=== PATIENT | female | born 2000 | race Two or more races ===

== ENCOUNTER 2023-01-17 21:28 | Emergency (ER) | payer OTHER ==
[~2023-01-17] VITALS: Ht 154.9 cm; Wt 59.9 kg
[2023-01-18] MEDS ORDERED: ONDANSETRON ODT4 MG PO (03:22)
[2023-01-18] MEDS ORDERED: CEPHALEXIN250 MG/5 M PO (03:25)
== END 2023-01-18 03:34 ==
LOC: ER 21:28
DX: A08.39 Other viral enteritis (principal); Z20.822 Contact with and (suspected) exposure to COVID-19

== ENCOUNTER 2023-11-24 16:11 | Emergency (ER) | payer OTHER ==
[~2023-11-24] VITALS: Ht 154.9 cm; Wt 60.8 kg
[~2023-11-24 16:11] MED LIST: CEPHALEXIN250 MG/5 M PO; ONDANSETRON ODT4 MG PO
[2023-11-24] MEDS ORDERED: PRENA1 CHEW TA1.4 MG PO (16:16)
[2023-11-24 18:23] LABS: URINE APPEARANCE Clear; URINE BILIRRUBIN Negative (NEGATIVE); URINE BLOOD Negative; URINE COLOR Yellow; URINE GLUCOSE Negative (NEGATIVE); URINE LEUKOCYTE Moderate; URINE NITRATE Negative; URINE PROTEIN Negative (NEGATIVE); URINE UROBILINOGEN 0.2 E.U./dl
[2023-11-24 18:27] LABS: URINE EPITHELIAL CELLS 27.9 uL (0.0-38.8); URINE RBC 7.4 uL (0.0-20.8); URINE WBC 88.7 uL (0.0-23.2)
[2023-11-24 18:37] LABS: HEMATOCRIT 37.7 % (36.0-45.00); HEMOGLOBIN 12.7 g/dL (12.0-15.00); MEAN CELL VOLUME 83.8 fL (80.00-100.00); MEAN CORPUSCULAR HEMOGLOBIN 28.2 pg (27.00-32.0); MEAN CORPUSCULAR HGB CONC 33.6 g/dl (32.0-36.0); PLATELET COUNT 324 K/uL (150-450); RED CELL DISTRIBUTION WIDTH 15.9 % (11.5-14.5)
[2023-11-24 19:05] LABS: ALBUMIN 3.8 gm/dL (3.4-5.0); BILIRUBIN TOTAL 0.32 mg/dL (0.3-1.2); CALCIUM 9.5 mg/dL (8.5-10.1); CREATININE SERUM 0.67 mg/dL (0.55-1.02); GFR 110.06; GLOBULINA 3.5 G/DL (2.4-3.5); POTASSIUM 4.42 mEq/L (3.5-5.1); TOTAL PROTEIN 7.3 gm/dL (6.4-8.2)
== END 2023-11-24 19:58 | disposition home or self-care (01) ==
LOC: ER 16:11
PROVIDERS: General Practice
DX: O23.41 Unspecified infection of urinary tract in pregnancy, first trimester (principal); N39.0 Urinary tract infection, site not specified; Z3A.11 11 weeks gestation of pregnancy; E16.1 Other hypoglycemia

== ENCOUNTER 2023-12-05 09:48 | Outpatient (CLI) | payer OTHER ==
[~2023-12-05 09:48] MED LIST changes: +PRENA1 CHEW TA1.4 MG PO
== END 2023-12-05 09:50 | disposition home or self-care (01) ==
LOC: PRENATAL 09:48
PROVIDERS: ATTEND Obstetrics & Gynecology Maternal & Fetal Medicine
DX: O36.80X0 Pregnancy with inconclusive fetal viability, not applicable or unspecified (principal); Z36.82 Encounter for antenatal screening for nuchal translucency; Z36.9 Encounter for antenatal screening, unspecified; O98.919 Unspecified maternal infectious and parasitic disease complicating pregnancy, unspecified trimester; Z3A.13 13 weeks gestation of pregnancy

== ENCOUNTER 2023-12-25 16:05 | Emergency (ER) | payer OTHER ==
[~2023-12-25] VITALS: Ht 154.9 cm; Wt 59.0 kg
[2023-12-25] MEDS ORDERED: RINGERS SOLUTION,LACTATED 1,000 ML IV ONE (17:45)
[2023-12-25] MEDS ORDERED: FAMOTIDINE/PF 20 MG/2 ML VIAL IV ONE (17:45)
[2023-12-25] MEDS ORDERED: KETOROLAC TROMETHAMINE 30 MG VIAL IV ONE (17:45)
[2023-12-25] MEDS ORDERED: ONDANSETRON HCL 2 MG/ML VIAL IV ONE (17:45)
[2023-12-25 18:39] LABS: HEMATOCRIT 36.7 % (36.0-45.00); HEMOGLOBIN 12.8 g/dL (12.0-15.00); MEAN CORPUSCULAR HGB CONC 34.9 g/dl (32.0-36.0); PLATELET COUNT 261 K/uL (150-450); RED BLOOD COUNT 4.26 M/uL (4.00-6.00); RED CELL DISTRIBUTION WIDTH 14.9 % (11.5-14.5)
[2023-12-25 19:18] LABS: URINE APPEARANCE Clear; URINE BACTERIA 94.4 uL (0.0-1933); URINE BILIRRUBIN Negative (NEGATIVE); URINE BLOOD Negative; URINE COLOR Dark Yellow; URINE EPITHELIAL CELLS 16.5 uL (0.0-38.8); URINE GLUCOSE Negative (NEGATIVE); URINE LEUKOCYTE Negative; URINE NITRATE Negative; URINE PROTEIN Trace (NEGATIVE); URINE RBC 2.7 uL (0.0-20.8); URINE WBC 8.9 uL (0.0-23.2)
[2023-12-25 19:20] LABS: CALCIUM 9.3 mg/dL (8.5-10.1); CREATININE SERUM 0.42 mg/dL (0.55-1.02); GFR 186.97; POTASSIUM 4.41 mEq/L (3.5-5.1)
[2023-12-25] MEDS ORDERED: ONDANSETRON ODT4 MG SL (20:56)
[2023-12-25] MEDS ORDERED: PEPCID AC20 MG PO (20:56)
== END 2023-12-25 21:44 | disposition home or self-care (01) ==
LOC: ER 16:06
PROVIDERS: Nurse Practitioner Family
DX: O26.892 Other specified pregnancy related conditions, second trimester (principal); Z3A.16 16 weeks gestation of pregnancy; Z20.822 Contact with and (suspected) exposure to COVID-19; R10.2 Pelvic and perineal pain

== ENCOUNTER 2024-04-22 04:19 | Outpatient (CLI) | payer OTHER ==
[~2024-04-22 04:19] MED LIST changes: +ONDANSETRON ODT4 MG SL; +PEPCID AC20 MG PO
[2024-04-22] MEDS ORDERED: RINGERS SOLUTION,LACTATED 1,000 ML IV SCH (04:30)
[2024-04-22 05:31] LABS: PH,URINE 6.5 (5.0-8.0); URINE APPEARANCE Cloudy; URINE BILIRRUBIN Negative (NEGATIVE); URINE BLOOD Small; URINE COLOR Yellow; URINE GLUCOSE Negative (NEGATIVE); URINE LEUKOCYTE Moderate; URINE NITRATE Negative; URINE PROTEIN Trace (NEGATIVE)
[2024-04-22 05:34] LABS: URINE BACTERIA 7007.7 uL (0.0-1933); URINE EPITHELIAL CELLS 51.6 uL (0.0-38.8); URINE RBC 82.6 uL (0.0-20.8); URINE WBC 120.9 uL (0.0-23.2)
[2024-04-22 06:13] LABS: URINE CRYSTALS FEW /HPF
== END 2024-04-22 11:01 | disposition home or self-care (01) ==
LOC: OBS/DEL 04:19
PROVIDERS: ATTEND General Practice
DX: O26.893 Other specified pregnancy related conditions, third trimester (principal); N20.0 Calculus of kidney; Z3A.33 33 weeks gestation of pregnancy; O26.849 Uterine size-date discrepancy, unspecified trimester; O36.8199 Decreased fetal movements, unspecified trimester, other fetus; O60.00 Preterm labor without delivery, unspecified trimester; M54.50 Low back pain, unspecified; R10.2 Pelvic and perineal pain

== ENCOUNTER 2024-05-12 21:19 | Outpatient (CLI) | payer OTHER ==
[~2024-05-12] VITALS: Ht 154.9 cm; Wt 62.6 kg
[2024-05-12] MEDS ORDERED: AMPICILLIN SODIUM 2,000 MG VIAL IV ONE (21:30)
[2024-05-12] MEDS ORDERED: RINGERS SOLUTION,LACTATED 1,000 ML IV SCH (21:30)
[2024-05-12] MEDS ORDERED: BETAMETHASONE ACETATE,SOD PHOS 30 MG/5 ML ML IM ONE (21:40)
[2024-05-12 22:02] LABS: PH,URINE 5.5 (5.0-8.0); URINE APPEARANCE Cloudy; URINE BILIRRUBIN Small (NEGATIVE); URINE BLOOD Negative; URINE COLOR Dark Yellow; URINE GLUCOSE Negative (NEGATIVE); URINE KETONE 15 (NEGATIVE); URINE LEUKOCYTE Small; URINE NITRATE Negative; URINE PROTEIN 30 (NEGATIVE)
[2024-05-12 22:03] LABS: URINE BACTERIA 8396.2 uL (0.0-1933); URINE EPITHELIAL CELLS 48.5 uL (0.0-38.8); URINE RBC 11.6 uL (0.0-20.8); URINE WBC 135.8 uL (0.0-23.2)
[2024-05-12 22:19] LABS: INR 0.96; PARTIAL THROMBOPLASTIN TIME 24.4 SECONDS (22.0-34.0); PROTHROMBIN TIME 10.1 SECONDS (9.0-11.5)
[2024-05-12 22:23] LABS: ALBUMIN 2.7 gm/dL (3.4-5.0); BILIRUBIN TOTAL 0.42 mg/dL (0.3-1.2); CALCIUM 8.8 mg/dL (8.5-10.1); CREATININE SERUM 0.45 mg/dL (0.55-1.02); GFR 172.66; GLOBULINA 3.2 G/DL (2.4-3.5); POTASSIUM 3.84 mEq/L (3.5-5.1); TOTAL PROTEIN 5.9 gm/dL (6.4-8.2)
[2024-05-12 22:25] LABS: HEMATOCRIT 27.7 % (36.0-45.00); MEAN CELL VOLUME 77.9 fL (80.00-100.00); MEAN CORPUSCULAR HEMOGLOBIN 26.4 pg (27.00-32.0); MEAN CORPUSCULAR HGB CONC 33.8 g/dl (32.0-36.0); PLATELET COUNT 257 K/uL (150-450); RED BLOOD COUNT 3.55 M/uL (4.00-6.00); RED CELL DISTRIBUTION WIDTH 15.4 % (11.5-14.5); URINE CAST 1.22 uL (0.0-1.40)
[2024-05-12 22:26] LABS: HEMOGLOBIN 9.4 g/dL (12.0-15.00)
[2024-05-13] MEDS ORDERED: AMPICILLIN SODIUM 1,000 MG VIAL IV SCH (01:00)
[2024-05-13] MEDS ORDERED: BETAMETHASONE ACETATE,SOD PHOS 30 MG/5 ML ML IM NR (07:00)
[2024-05-13] MEDS ORDERED: SOD FERRIC GLUC COMPLX/SUCROSE 62.5 MG/5 ML AMPUL IV SCH (09:30)
== END 2024-05-13 14:11 | disposition home or self-care (01) ==
LOC: OBS/DEL 21:19
PROVIDERS: ATTEND General Practice
DX: O26.893 Other specified pregnancy related conditions, third trimester (principal); O99.013 Anemia complicating pregnancy, third trimester; Z3A.35 35 weeks gestation of pregnancy; O26.849 Uterine size-date discrepancy, unspecified trimester; O36.8199 Decreased fetal movements, unspecified trimester, other fetus

== ENCOUNTER 2024-05-28 14:30 | Inpatient (IN) | payer OTHER ==
[~2024-05-28] VITALS: Ht 152.4 cm; Wt 66.2 kg
[2024-05-28 15:56] LABS: HEMATOCRIT 35.7 % (36.0-45.00); HEMOGLOBIN 11.6 g/dL (12.0-15.00); MEAN CELL VOLUME 80.4 fL (80.00-100.00); MEAN CORPUSCULAR HEMOGLOBIN 26.3 pg (27.00-32.0); MEAN CORPUSCULAR HGB CONC 32.6 g/dl (32.0-36.0); PLATELET COUNT 239 K/uL (150-450); RED BLOOD COUNT 4.44 M/uL (4.00-6.00); URINE APPEARANCE Clear; URINE BILIRRUBIN Negative (NEGATIVE); URINE BLOOD Negative; URINE COLOR Dark Yellow; URINE GLUCOSE Negative (NEGATIVE); URINE KETONE Trace (NEGATIVE); URINE LEUKOCYTE Trace; URINE NITRATE Negative; URINE PROTEIN Trace (NEGATIVE)
[2024-05-28 15:59] LABS: URINE BACTERIA 1117.5 uL (0.0-1933); URINE EPITHELIAL CELLS 25.5 uL (0.0-38.8); URINE RBC 3.6 uL (0.0-20.8)
[2024-05-28 16:15] LABS: INR 0.97; PARTIAL THROMBOPLASTIN TIME 27.6 SECONDS (22.0-34.0); PROTHROMBIN TIME 10.6 SECONDS (9.0-11.5); URINE CAST 0.45 uL (0.0-1.40); URINE CRYSTALS FEW /HPF; URINE MUCUS MODERATE
[2024-05-28 16:21] LABS: BILIRUBIN TOTAL 0.49 mg/dL (0.3-1.2); CALCIUM 9.4 mg/dL (8.5-10.1); CREATININE SERUM 0.43 mg/dL (0.55-1.02); GFR 181.96; GLOBULINA 3.7 G/DL (2.4-3.5); POTASSIUM 4.45 mEq/L (3.5-5.1); TOTAL PROTEIN 6.7 gm/dL (6.4-8.2)
[2024-06-09] VITALS (8 sets, daily range): BP systolic 100–123; BP diastolic 65–76
[2024-06-09] MEDS ORDERED: hydrOXYzine PAMOATE 25 MG CAPSULE PO ONE (01:37)
[2024-06-09] MEDS ORDERED: PROMETHAZINE HCL 25 MG/ML AMPUL ONE (08:16)
[2024-06-09] MEDS ORDERED: PROMETHAZINE HCL 25 MG/ML AMPUL IV NR (08:30)
[2024-06-09] MEDS ORDERED: FAMOTIDINE/PF 20 MG/2 ML VIAL IV SCH ×2 (10:45→17:00)
[2024-06-09] MEDS ORDERED: MEPERIDINE HCL/PF 25 MG/ML VIAL IV NR (10:45)
[2024-06-09] MEDS ORDERED: ONDANSETRON HCL 2 MG/ML VIAL IV NR (10:46)
[2024-06-09] MEDS ORDERED: OXYTOCIN 500 ML IV SCH (11:00)
[2024-06-09] MEDS ORDERED: RINGERS SOLUTION,LACTATED 1,000 ML IV SCH (11:15)
[2024-06-09] MEDS ORDERED: POVIDONE-IODINE 118 ML BOTT TOP ONE ×2 (13:00→13:42)
[2024-06-09] MEDS ORDERED: MEPERIDINE HCL/PF 25 MG/ML VIAL IV ONE (13:45)
[2024-06-09] MEDS ORDERED: ERYTHROMYCIN BASE 1 GM TUBE OP ONE (17:13)
[2024-06-09] MEDS ORDERED: LIDOCAINE HCL 1% 10ML VIAL ONE (17:14)
[2024-06-09] MEDS ORDERED: CHLORHEXIDINE GLUCONATE 120 ML BOTTLE TOP ONE (17:14)
[2024-06-09] MEDS ORDERED: OXYTOCIN 20 UNITS/1000ML RL PIGGYBAG IV ONE (17:14)
[2024-06-09] MEDS ORDERED: NALOXONE HCL 0.4 MG/ML AMPUL ONE (19:14)
[2024-06-09] MEDS ORDERED: ACETAMINOPHEN 500 MG GEL..CAP PO PRN (20:00)
[2024-06-09] MEDS ORDERED: OXYTOCIN 1,000 ML IV SCH (20:00)
[2024-06-09] MEDS ORDERED: IBUprofen 400 MG TABLET PO PRN (20:00)
[2024-06-09] MEDS ORDERED: ERYTHROMYCIN BASE 1 GM TUBE OP SCH (20:00)
[2024-06-09] MEDS ORDERED: CHLORHEXIDINE GLUCONATE 120 ML BOTTLE TOP SCH (20:00)
[2024-06-09] MEDS ORDERED: FF) RHO(D) IMMUNE GLOBULIN (POM) IM ONE (20:00)
[2024-06-10] VITALS: BP 95/59
[2024-06-10 00:47] LABS: HEMATOCRIT 35.8 % (36.0-45.00); MEAN CELL VOLUME 81.9 fL (80.00-100.00); MEAN CORPUSCULAR HGB CONC 32.8 g/dl (32.0-36.0); PLATELET COUNT 233 K/uL (150-450); RED BLOOD COUNT 4.38 M/uL (4.00-6.00); RED CELL DISTRIBUTION WIDTH 21.6 % (11.5-14.5)
[2024-06-10 00:48] LABS: HEMOGLOBIN 11.7 g/dL (12.0-15.00); MEAN CORPUSCULAR HEMOGLOBIN 26.7 pg (27.00-32.0)
[2024-06-10 04:00] VITALS: BP 110/72; BP 110/74
[2024-06-10 08:00] VITALS: BP 98/66
[2024-06-10] MEDS ORDERED: PNV,CALCIUM 72/IRON/FOLIC ACID 1 TAB TABLET PO SCH (09:00)
[2024-06-10 13:00] VITALS: BP 97/65
[2024-06-10] MEDS ORDERED: MEASLES,MUMPS,RUBELLA VACC/PF 1 VIAL VIAL SUBCUTANEO NR (14:00)
[2024-06-10 15:53] VITALS: BP 102/69
[2024-06-11 00:13] VITALS: BP 99/61
[2024-06-11 06:49] LABS: HEMATOCRIT 33.7 % (36.0-45.00); HEMOGLOBIN 11.1 g/dL (12.0-15.00); MEAN CELL VOLUME 81.4 fL (80.00-100.00); MEAN CORPUSCULAR HEMOGLOBIN 26.7 pg (27.00-32.0); MEAN CORPUSCULAR HGB CONC 32.8 g/dl (32.0-36.0); PLATELET COUNT 245 K/uL (150-450); RED BLOOD COUNT 4.14 M/uL (4.00-6.00); RED CELL DISTRIBUTION WIDTH 21.6 % (11.5-14.5)
[2024-06-11 08:36] VITALS: BP 109/72
[2024-06-11] MEDS ORDERED: FF) RHO(D) IMMUNE GLOBULIN (POM) IM ONE (12:45)
== END 2024-06-11 12:58 | disposition home or self-care (01) | DRG 807 ==
LOC: OB/GYN 06-09 08:21 → LDR 06-09 08:21 → OB/GYN 06-09 20:42 → LDR 06-10 14:30 → OB/GYN 06-11 12:58
PROVIDERS: ADMIT General Practice; ATTEND General Practice
PROC: 10E0XZZ Delivery of Products of Conception, External Approach (ICD-10-PCS; principal; 2024-06-09)
PROC: 4A1HXCZ Monitoring of Products of Conception, Cardiac Rate, External Approach (ICD-10-PCS; 2024-06-09)
DX: O80 Encounter for full-term uncomplicated delivery (principal); Z37.0 Single live birth; Z3A.39 39 weeks gestation of pregnancy; Z20.822 Contact with and (suspected) exposure to COVID-19

== ENCOUNTER 2024-06-08 12:00 | Outpatient (CLI) | payer OTHER ==
[2024-06-08 12:03] VITALS: BP 113/78
[2024-06-08 12:09] VITALS: BP 113/78
== END 2024-06-08 15:01 | disposition left against medical advice (07) ==
LOC: OBS/DEL 12:00
PROVIDERS: ATTEND General Practice
DX: O26.893 Other specified pregnancy related conditions, third trimester (principal); Z3A.39 39 weeks gestation of pregnancy

== ENCOUNTER 2024-06-09 01:22 | Outpatient (CLI) | payer OTHER ==
[2024-06-09 00:30] VITALS: BP 109/74
[2024-06-09] MEDS ORDERED: FAMOTIDINE/PF 20 MG/2 ML VIAL ONE (01:37)
[2024-06-09] MEDS ORDERED: hydrOXYzine PAMOATE 25 MG CAPSULE PO ONE (01:45)
[2024-06-09] MEDS ORDERED: RINGERS SOLUTION,LACTATED 1,000 ML IV SCH (01:45)
[2024-06-09] MEDS ORDERED: FAMOTIDINE/PF 20 MG/2 ML VIAL IV PUSH SCH (01:45)
[2024-06-09 03:00] VITALS: BP 109/76
[2024-06-09] MEDS ORDERED: MORPHINE SULFATE 4 MG/ML CARTRIDGE IV ONE (03:00)
[2024-06-09 07:41] VITALS: BP 117/76
== END 2024-06-09 08:20 | disposition still patient (30) ==
LOC: OBS/DEL 01:22
PROVIDERS: ATTEND General Practice
DX: O26.893 Other specified pregnancy related conditions, third trimester (principal); Z3A.39 39 weeks gestation of pregnancy